=== PATIENT | male | born 1960 | race Caucasian/White ===

== ENCOUNTER 2018-03-27 10:20 | Emergency (ER) | payer MEDICAID, OTHER ==
--- NOTE | 2018-03-27 10:46 | ED PDOC ---
HPI: Trauma/Fall - HPI Time Seen by Provider: 03/27/18 10:40 Chief Complaint (Nursing): Trauma Chief Complaint (Provider): Slip and Fall History Per: Patient History/Exam Limitations: no limitations Onset/Duration Of Symptoms: Hrs (twelve), Persistent Description Of Injury (Context): abrasions on R face; laceration to R ear; reduced ROM R shoulde Additional Complaint(s): Pt presents to the ED complaining of several injuries sustained last night when slipping on the driveway of his mother's home due to icy conditions. Specifically the patient complains of a superficial laceration to the right posterior ear when his glasses cut him, multiple abrasions to the right face and reduced ROM to th eright shoulder. Pt denies LOC, syncope or near syncope. Pt indicates that his shoulder was injured about a year ago and surgically repaired Past Medical History Vital Signs: Last Vital Signs Temp 98.3 F 03/27/18 10:23 Pulse 72 03/27/18 10:23 Resp 18 03/27/18 10:23 BP 146/84 03/27/18 10:23 Pulse Ox 99 03/27/18 10:23 - Family History Family History: States: Unknown Family Hx - Immunization History Hx Tetanus Toxoid Vaccination: No Hx Influenza Vaccination: No Hx Pneumococcal Vaccination: No - Home Medications Home Medications: Ambulatory Orders Medication Instructions Recorded Cephalexin [Keflex] 500 mg PO Q6 #28 cap 05/04/13 Sulfamethoxazole/Trimethoprim 1 tab PO BID #14 tab 05/04/13 [Bactrim DS 800 mg-160 mg] oxyCODONE/Acetaminophen [Percocet 1 tab PO QID PRN #20 tab 05/04/13 5/325 mg Tab] Diclofenac Potassium 50 mg PO BID #20 tablet 03/27/18 - Allergies Allergies/Adverse Reactions: Allergies Allergy/AdvReac Type Severity Reaction Status Date / Time No Known Allergies Allergy Unverified 05/04/13 18:00 Physical Exam - Reviewed Nursing Documentation Reviewed: Yes Vital Signs Reviewed: No - Physical Exam Appears: Positive for: Well, Non-toxic, No Acute Distress, Uncomfortable Head Exam: Negative for: ATRAUMATIC (multiple abrasions and contusions to the right side of face; superfical. Laceration to right posterior ear; superficial; bleeding is undercontrol) Skin: Positive for: Normal Color (see notes above re head) Eye Exam: Positive for: Normal appearance, EOMI, PERRL. Negative for: Nystagmus, Periorbital swelling, Periorbital tenderness ENT: Positive for: Hearing Is (normal). Negative for: Nasal Congestion Neck: Positive for: Normal, Painless ROM, Supple. Negative for: Decreased ROM Cardiovascular/Chest: Positive for: Regular Rate, Rhythm Respiratory: Positive for: Normal Breath Sounds Pulses-Carotid (L): 2+ Pulses-Carotid (R): 2+ Pulses-Radial (L): 2+ Pulses-Radial (R): 2+ Extremity: Positive for: Tenderness. Negative for: Normal ROM (UPPER EXTREMITY: (+) tenderness of right shoulder at the glenohumeral joint; there is tenderness at the right clavicalw without deformity; (-) crepitus, (-) deformity, (+) clavicular tenderness, (+) acromio-clavicular tenderness without deformity. Able to abduct but limited to 30 degrees, forward elevation limited to 30 degrees. (-) distal neurovascular deficit . Elbow and wrist: (-) tenderness, (-) limitation of motion.), Deformity (Right Shoulder: none), Swelling - ECG O2 Sat by Pulse Oximetry: 99 Medical Decision Making Medical Decision Making: R/O: Intracranial Injury R/O: Shoulder Fx/dislocation Plan Laceration Repair Abrasion Repair CT Head: No acute intracranial pathology identified. XR Right Shoulder: Metallic plate and screw fixation of the right clavicle with lucency noted at the proximal aspect of the hardware; correlate clinically as nondisplaced fracture is not excluded. Visualized osseous structures appear otherwise intact. JOINTS: No acute dislocation. SOFT TISSUES: Soft tissue swelling. IMPRESSION: Soft tissue swelling. Vertical lucency noted at the proximal aspect of the clavicle at the level of the hardware most medially; acute nondisplaced fracture is not excluded. Correlate clinically. Cleaned lacerated ear and covered with bacitracin Sling to right shoulder Refer to Ortho Disposition - Clinical Impression Clinical Impression: Shoulder pain, acute - Patient ED Disposition Is Patient to be Admitted: No Doctor Will See Patient In The: Hospital Counseled Patient/Family Regarding: Studies Performed, Diagnosis, Need For Followup, Rx Given - Disposition Referrals: Jose Francisco Eric III, MD [Staff Provider] - Disposition: Routine/Home Disposition Time: 11:34 Condition: STABLE Prescriptions: Diclofenac Potassium 50 mg PO BID #20 tablet Instructions: Shoulder Pain (DC), Clavicle Fracture (DC) Forms: [employer] (German)
--- NOTE | 2018-03-27 11:14 | CT ---
Date of service: 03/27/2018 PROCEDURE: CT HEAD WITHOUT CONTRAST. HISTORY: s/p fall COMPARISON: None available. TECHNIQUE: Axial computed tomography images were obtained through the head/brain without intravenous contrast. Radiation dose: Total exam DLP = 886.72 mGy-cm. This CT exam was performed using one or more of the following dose reduction techniques: Automated exposure control, adjustment of the mA and/or kV according to patient size, and/or use of iterative reconstruction technique. FINDINGS: HEMORRHAGE: No intracranial hemorrhage. BRAIN: No mass effect or edema. The stoll-white matter differentiation appears intact. Please note that MRI with diffusion imaging is more sensitive in the detection of acute ischemic event. VENTRICLES: No hydrocephalus. CALVARIUM: Unremarkable. PARANASAL SINUSES: Unremarkable as visualized. No significant inflammatory changes. MASTOID AIR CELLS: Unremarkable as visualized. No inflammatory changes. OTHER FINDINGS: None. IMPRESSION: No acute intracranial pathology identified.
--- NOTE | 2018-03-27 11:16 | RAD ---
PROCEDURE: Radiographs of the Right Shoulder HISTORY: s/p fall COMPARISON: No prior. FINDINGS: BONES: Metallic plate and screw fixation of the right clavicle with lucency noted at the proximal aspect of the hardware; correlate clinically as nondisplaced fracture is not excluded. Visualized osseous structures appear otherwise intact. JOINTS: No acute dislocation. SOFT TISSUES: Soft tissue swelling. IMPRESSION: Soft tissue swelling. Vertical lucency noted at the proximal aspect of the clavicle at the level of the hardware most medially; acute nondisplaced fracture is not excluded. Correlate clinically.
[2018-03-27 12:16] VITALS: BP 142/79; PULSE 77; RESP 20; TEMP 98.6; O2SAT 97
== END 2018-03-27 12:10 | disposition home or self-care (01) ==
LOC: H.ER 10:20
DX: M25.511 Pain in right shoulder (principal); W01.0XXA Fall on same level from slipping, tripping and stumbling without subsequent striking against object, initial encounter